=== PATIENT | female | born 1970 | race Caucasian/White ===

== ENCOUNTER → 2021-05-05 | Outpatient (CLI) | payer OTHER ==
[~2021-05-05] MED LIST: BACLOFEN10 MG PO; FAMOTIDINE40 MG PO; FLUTICASONE INH; GABAPENTIN300 MG PO; HYDROCODON-ACE1 EAC2 PO; HYDROXYZINE PAM25 MG PO; LIPITOR TAB 1010 MG PO; LISINOPRIL5 MG PO; MELATONIN5 M2 PO; MELOXICAM15 MG PO; NITROFURANTOIN100 MG PO; PROAIR DIGIHAL90 MCG INH
== END ==
LOC: KOH-I 10:30
DX: M51.16 Intervertebral disc disorders with radiculopathy, lumbar region (principal)
CPT/HCPCS: 72131

== ENCOUNTER → 2021-05-05 | Outpatient (CLI) | payer OTHER | LOC: ECHO 09:28 | DX: Z01.810 Encounter for preprocedural cardiovascular examination (principal); R00.2 Palpitations; I08.1 Rheumatic disorders of both mitral and tricuspid valves | CPT/HCPCS: ECHO; 93306 ==

== ENCOUNTER 2021-05-18 04:52 | Inpatient (IN) | payer OTHER ==
[~2021-05-18] VITALS: Ht 167.6 cm; Wt 85.7 kg
[~2021-05-18 04:52] MED LIST changes: +FLONASE 0.05% N16 GM; -FLUTICASONE INH; -PROAIR DIGIHAL90 MCG INH; +PROAIR HFA8.5 GM INH
[2021-05-18 12:44] LABS: HEMOGLOBIN 13.5 gm/dl (12.3-15.3); RED BLOOD COUNT 4.05 M/UL (4.00-5.10); WHITE BLOOD COUNT 8.8 K/UL (4.5-11.0)
[2021-05-18 13:16] LABS: BUN/CREATININE RATIO 11 (0-10)
[2021-05-18] MEDS ORDERED: SUMATRIPTAN SUC50 MG PO (13:58)
[2021-05-19 04:58] LABS: HEMOGLOBIN 12.1 gm/dl (12.3-15.3); RED BLOOD COUNT 3.7 M/UL (4.00-5.10)
[2021-05-19 04:59] LABS: WHITE BLOOD COUNT 11.2 K/UL (4.5-11.0)
[2021-05-19 05:34] LABS: BUN/CREATININE RATIO 15 (0-10)
[2021-05-20 05:08] LABS: HEMOGLOBIN 12.1 gm/dl (12.3-15.3); RED BLOOD COUNT 3.69 M/UL (4.00-5.10)
[2021-05-20 05:35] LABS: BUN/CREATININE RATIO 9 (0-10)
[2021-05-20] MEDS ORDERED: NICOTINE PATCH1 EAC1 TD (11:39)
[2021-05-21 05:04] LABS: HEMOGLOBIN 11.6 gm/dl (12.3-15.3); RED BLOOD COUNT 3.55 M/UL (4.00-5.10); WHITE BLOOD COUNT 7.8 K/UL (4.5-11.0)
[2021-05-21 05:29] LABS: BUN/CREATININE RATIO 13 (0-10)
[2021-05-21] MEDS ORDERED: NEBULIZER UNIT NEB (18:14)
[2021-05-21] MEDS ORDERED: IPRAT-ALBUT 0.5-3 ML INH (18:14)
[2021-05-22 05:17] LABS: HEMOGLOBIN 11.1 gm/dl (12.3-15.3); RED BLOOD COUNT 3.38 M/UL (4.00-5.10); WHITE BLOOD COUNT 7.4 K/UL (4.5-11.0)
[2021-05-22 05:27] LABS: BUN/CREATININE RATIO 17 (0-10)
== END 2021-05-22 16:00 | disposition home health service (06) | DRG 454 ==
LOC: OR 04:52 → CCU 13:34
PROVIDERS: ADMIT Orthopaedic Surgery
PROC: 0SG0071 Fusion of Lumbar Vertebral Joint with Autologous Tissue Substitute, Posterior Approach, Posterior Column, Open Approach (ICD-10-PCS; 2021-05-18)
PROC: 01NB0ZZ Release Lumbar Nerve, Open Approach (ICD-10-PCS; 2021-05-18)
PROC: 4A11X4G Monitoring of Peripheral Nervous Electrical Activity, Intraoperative, External Approach (ICD-10-PCS; 2021-05-18)
PROC: 0SG00AJ Fusion of Lumbar Vertebral Joint with Interbody Fusion Device, Posterior Approach, Anterior Column, Open Approach (ICD-10-PCS; principal; 2021-05-18 07:30)
DX: M48.061 Spinal stenosis, lumbar region without neurogenic claudication (principal); N39.0 Urinary tract infection, site not specified; I10 Essential (primary) hypertension; K21.9 Gastro-esophageal reflux disease without esophagitis; M54.16 Radiculopathy, lumbar region; E78.5 Hyperlipidemia, unspecified; Z96.661 Presence of right artificial ankle joint; F17.200 Nicotine dependence, unspecified, uncomplicated; R00.1 Bradycardia, unspecified; J44.9 Chronic obstructive pulmonary disease, unspecified; G47.33 Obstructive sleep apnea (adult) (pediatric); I95.2 Hypotension due to drugs; I34.1 Nonrheumatic mitral (valve) prolapse; R09.02 Hypoxemia; M51.16 Intervertebral disc disorders with radiculopathy, lumbar region; Z87.440 Personal history of urinary (tract) infections; Z98.51 Tubal ligation status; Z90.710 Acquired absence of both cervix and uterus; Z90.49 Acquired absence of other specified parts of digestive tract; Z98.890 Other specified postprocedural states; Z88.8 Allergy status to other drugs, medicaments and biological substances; Z82.49 Family history of ischemic heart disease and other diseases of the circulatory system; Z79.899 Other long term (current) drug therapy; Z71.6 Tobacco abuse counseling
CPT/HCPCS: 36415; 71045; 72100; 72110; 76000; 80048; 85018; 85027; 86850; 86900; 86901; 94640; 94664; 94760; 97116-GP-CQ; 97162; 97166; 97530; 97530-GP-CQ; 97535; C1713; C1762; J0690; J1100; J1170; J1644; J2001; J2250; J2370; J2405; J2704; J3010; J3370; J7030; J7040; J7120; Q0177